=== PATIENT | male | born 1980 | race Caucasian/White ===

== ENCOUNTER 2023-12-10 16:11 | Emergency (ER) | payer OTHER, SELFPAY ==
[2023-12-10 16:14] VITALS: BP 132/80; PULSE 72; RESP 18; TEMP 36.3; O2SAT 99
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
[2023-12-10 17:20] VITALS: BP 126/80; PULSE 78; RESP 17; TEMP 36.8; O2SAT 99
== END 2023-12-10 17:21 | disposition home or self-care (01) ==
LOC: ER 19:34
PROVIDERS: Emergency Provider Emergency Medicine
DX: S42.021A Displaced fracture of shaft of right clavicle, initial encounter for closed fracture (principal); V18.0XXA Pedal cycle driver injured in noncollision transport accident in nontraffic accident, initial encounter
CPT/HCPCS: 99284; 73000; 73030; 99283